=== PATIENT | male | born 1995 | race American Indian/Alaskan Native ===

== ENCOUNTER 2018-02-21 14:02 | Emergency (ER) | payer SELFPAY ==
[2018-02-21 14:31] VITALS: TEMP 98.4
[2018-02-21] MEDS ORDERED: Amoxicillin-Clav 875-125 mg Tab PO STA (15:15)
--- NOTE | 2018-02-21 15:16 | C.PDOC ---
History Of Present Illness 22 y/o male, with no medical problems, comes in for evaluation of cold symptom for the past 4-5 days associated with low grade fever, nasal congestion, and intermittent frontal headache with dizziness. Admits, similar sx in past " when i was diagnosed with sinusitis". Otherwise, pt denies high fever, worse headache of life, drooling, dysphagia, dyspnea, chest pain, SOB, wheezing, abd. pian, N/V/D, back pian, UTi sx. Ambulate to Ed for evaluation, not in any apparent distress. Time Seen by Provider: 02/21/18 14:33 Chief Complaint (Nursing): Flu-like Symptoms History Per: Patient History/Exam Limitations: no limitations Onset/Duration Of Symptoms: Days Current Symptoms Are (Timing): Still Present Past Medical History Reviewed: Historical Data, Nursing Documentation, Vital Signs Vital Signs: Last Vital Signs Temp 98.4 F 02/21/18 14:28 Pulse 61 02/21/18 14:28 Resp 16 02/21/18 14:28 BP 156/85 H 02/21/18 14:28 Pulse Ox 98 02/21/18 14:28 Family History: States: No Known Family Hx - Social History Hx Alcohol Use: No Hx Substance Use: No - Immunization History Hx Tetanus Toxoid Vaccination: No Hx Influenza Vaccination: No Hx Pneumococcal Vaccination: No Review Of Systems Constitutional: Positive for: Fever (low grade) ENT: Positive for: Nose Congestion Cardiovascular: Negative for: Chest Pain Respiratory: Negative for: Shortness of Breath, Wheezing Neurological: Positive for: Headache, Dizziness Physical Exam - Physical Exam Appears: Well, Non-toxic, No Acute Distress Skin: Normal Color, Warm, No Rash Head: Normacephalic Eye(s): bilateral: PERRL Ear(s): Bilateral: Normal Nose: Discharge (B/L nasal congestion with scant clear rhinorrhea), Other (mild B/L paranasal tenderness, no edema or erythema) Oral Mucosa: Moist, No Drooling Throat: No Erythema, No Drooling Neck: Trachea Midline, Supple Cardiovascular: Rhythm Regular, No Murmur, No JVD Respiratory: No Decreased Breath Sounds, No Accessory Muscle Use, No Rales, No Rhonchi, No Stridor, No Wheezing Gastrointestinal/Abdominal: Soft, No Tenderness, No Distention, No Guarding Back: No CVA Tenderness Extremity: Normal ROM, No Pedal Edema, No Deformity, No Swelling Neurological/Psych: Oriented x3, Normal Speech ED Course And Treatment O2 Sat by Pulse Oximetry: 98 (RA) Pulse Ox Interpretation: Normal Progress Note: Augmentin and prednisone administered. On re-eval, pt is afebrile, hemodynamicaly stable. NOn-toxic. PulsEOx 98% RA. ENT: exam c/w sinusitis. neck: Supple, (-) meningeal sign. Lungs: CTA B/L, BS equal B/L. Abd: Benign, (-) guarding, (-) rebound. Neuorlogicaly intact. Influneza (-). Pt advised on course of ds,. ref. to F/u with PMD, ENT in 2-3 days for re- evaluation. return to ED if any worsening or new changes. Disposition Counseled Patient/Family Regarding: Diagnosis, Need For Followup, Rx Given - Disposition Referrals: at [facility] [Outside] Disposition: HOME/ ROUTINE Disposition Time: 15:16 Condition: STABLE Prescriptions: Amoxicillin/Clavulanate [Augmentin 875 MG-125 MG] 1 tab PO BID #14 tab Loratadine [Claritin] 10 mg PO DAILY #20 tab Prednisone [Deltasone] 40 mg PO DAILY #6 tablet Instructions: Sinusitis in Adults Forms: [facility] (Finnish) - Clinical Impression Clinical Impression: Sinusitis - PA / [employer] / Resident Statement MD/DO has reviewed & agrees with the documentation as recorded. - Scribe Statement The provider has reviewed the documentation as recorded by the Scribe Qi Aguilar All medical record entries made by the Mark were at my direction and personally dictated by me. I have reviewed the chart and agree that the record accurately reflects my personal performance of the history, physical exam, medical decision making, and the department course for this patient. I have also personally directed, reviewed, and agree with the discharge instructions and disposition.
[2018-02-21] MEDS ORDERED: Amoxicillin-Clav 875-125 mg Tab PO ONE (15:25)
[2018-02-21 16:11] VITALS: BP 122/76; PULSE 59; RESP 18; O2SAT 100
== END 2018-02-21 16:13 | disposition home or self-care (01) ==
LOC: C.ER 14:02
DX: J32.9 Chronic sinusitis, unspecified (principal)